=== PATIENT | female | born 1950 | race Caucasian/White ===

== ENCOUNTER 2025-01-18 06:50 | Day surgery (SDC) | payer MEDICARE ==
[2025-01-18] VITALS (13 sets, daily range): BP systolic 103–133; BP diastolic 47–72; PULSE 56–76; RESP 15–16; TEMP 97–97.9
[~2025-01-18] VITALS: Ht 167.6 cm; Wt 63.5 kg
[2025-01-18] MEDS: 0.9%NACL 1000ML 1,000 ML IV ONE (08:00)
[2025-01-18] MEDS ORDERED: proPOFol 10 MG/ML 20ML VIAL IV ONE (08:41)
== END 2025-01-18 10:06 | disposition home or self-care (01) ==
LOC: DAH 06:50 → ENDO 06:50
PROVIDERS: ATTEND Internal Medicine
DX: R10.9 Unspecified abdominal pain (principal); R93.2 Abnormal findings on diagnostic imaging of liver and biliary tract; K83.8 Other specified diseases of biliary tract; K80.50 Calculus of bile duct without cholangitis or cholecystitis without obstruction; K31.89 Other diseases of stomach and duodenum; Z90.49 Acquired absence of other specified parts of digestive tract; Z79.899 Other long term (current) drug therapy
CPT/HCPCS: 43259; J7030; J2704; A4620; A4215; 43237; J3490

== ENCOUNTER 2025-02-01 09:15 | Day surgery (SDC) | payer MEDICARE ==
[2025-02-01] VITALS (13 sets, daily range): BP systolic 120–165; BP diastolic 61–82; PULSE 60–69; RESP 12–17; TEMP 97.1–97.8
[~2025-02-01] VITALS: Ht 167.6 cm; Wt 63.5 kg
[2025-02-01] MEDS: 0.9%NACL 1000ML 1,000 ML IV ONE (10:05)
[2025-02-01] MEDS ORDERED: IOHEXOL-350 50ML VIAL IV ONE (10:46)
[2025-02-01] MEDS ORDERED: proPOFol 10 MG/ML 20ML VIAL IV ONE (11:09)
[2025-02-01] MEDS ORDERED: SUCCINYLCHOLINE CHLORIDE 20 MG/ML 10 ML VIAL ONE (11:09)
[2025-02-01] MEDS ORDERED: ondanSETRON 4MG INJ ONE (11:09)
--- NOTE | 2025-02-01 12:19 | HMCIMG ---
ERCP BILI/PANC DUCT REASON: CBD STONES. COMPARISON: None TECHNIQUE: ERCP was performed by referring physician. FINDINGS: Please see procedure report for by referring physician. IMPRESSION: ERCP
[2025-02-01] MEDS: INDOMETHACIN 100 MG SUPP.RECT RC ONE (13:05)
== END 2025-02-01 13:10 | disposition home or self-care (01) ==
LOC: ENDO 09:15 → DAH 09:15 → ENDO 13:10
PROVIDERS: ATTEND Internal Medicine
DX: R93.2 Abnormal findings on diagnostic imaging of liver and biliary tract (principal); K80.50 Calculus of bile duct without cholangitis or cholecystitis without obstruction; R10.9 Unspecified abdominal pain; Z90.49 Acquired absence of other specified parts of digestive tract; Z79.899 Other long term (current) drug therapy
CPT/HCPCS: 43264; 43274; 74328; 74330; A4606; C1769; J0330; J2405; J2704; J7030; Q9967; A4215; A4221; A4222; A4223; A4657; A4663; A7002; C1876; J3490

== ENCOUNTER → 2025-02-10 | Outpatient (CLI) | payer MEDICARE ==
[2025-02-10 13:56] LABS: BASOPHILS # (AUTO) 0.05 K/uL (0.00-0.20); BASOPHILS % (AUTO) 0.8 % (0.0-5.0); EOSINOPHILS % (AUTO) 3.2 % (0.0-8.0); HEMATOCRIT 42.2 % (36-48); IMMATURE GRANULOCYTE ABSOLUTE 0.02 K/uL (0-1); LYMPHOCYTES # (AUTO) 1.7 K/uL (1.0-4.8); LYMPHOCYTES % (AUTO) 26.7 % (21.0-51.0); MEAN CORPUSCULAR HEMOGLOBIN 31.7 pg (27.0-33.0); MEAN CORPUSCULAR HGB CONC 32.9 g/dL (32.0-36.0); MEAN CORPUSCULAR VOLUME 96.1 fL (79-99); MONOCYTES # (AUTO) 0.6 K/uL (0.1-1.0); MONOCYTES % (AUTO) 9.5 % (3.0-13.0); NEUTROPHILS # (AUTO) 3.8 K/uL (1.8-7.7); NEUTROPHILS % (AUTO) 59.5 % (40.0-77.0); PLATELET COUNT (AUTO) 176 K/uL (130-400); RED BLOOD CELL COUNT(AUTO) 4.39 MIL/uL (4.00-5.50); WHITE BLOOD COUNT (AUTO) 6.3 K/uL (4.8-10.8)
[2025-02-10 14:08] LABS: ALBUMIN 3.7 g/dL (3.5-5.0); BILIRUBIN,TOTAL 0.5 mg/dL (0.2-1.0); CREATININE 0.6 mg/dL (0.5-1.0); POTASSIUM 3.8 mmol/L (3.5-5.1); TOTAL PROTEIN, SERUM 6.9 g/dL (6.0-8.3)
--- NOTE | 2025-02-10 17:11 | HMCIMG ---
ABD COMP DECUB/ERECT VWS HISTORY: Bile duct stone COMPARISON: None FINDINGS: Two views of the abdomen were obtained. A nonspecific bowel gas pattern is seen. Fecal material is seen in the colon. Post cholecystectomy changes are seen. A stent-like structure is seen in the right mid abdomen. There is no evidence of free intraperitoneal air. Degenerative changes of the thoracolumbar spine are present. IMPRESSION: 1. A nonspecific bowel gas pattern.
== END | disposition home or self-care (01) ==
LOC: RAH 13:14
PROVIDERS: ATTEND Internal Medicine Gastroenterology
DX: K80.50 Calculus of bile duct without cholangitis or cholecystitis without obstruction (principal); M47.815 Spondylosis without myelopathy or radiculopathy, thoracolumbar region; Z90.49 Acquired absence of other specified parts of digestive tract
CPT/HCPCS: 36415; 74021; 80053; 82150; 83690; 85025